=== PATIENT | male | born 1990 | race Two or more races ===

== ENCOUNTER 2020-12-10 04:39 | Emergency (ER) | payer SELFPAY ==
[~2020-12-10] VITALS: Ht 172.7 cm; Wt 59.1 kg
[2020-12-10 04:49] VITALS: BP 138/66
[2020-12-10] MEDS ORDERED: AZITHROMYCIN 250 MG TABLET. PO ONE (05:15)
[2020-12-10] MEDS ORDERED: TRAM-48 PO (05:37)
[2020-12-10] MEDS ORDERED: CLIN300C9 PO (05:37)
--- NOTE | 2020-12-10 05:42 | PHYS DOC ---
Past Medical History Past Surgical History: Other Additional Past Surgical Histo: WRIST General Adult EDM: Chief Complaint: DENTAL PROBLEM HPI: HPI: Patient is a 30 year old MALE presents with the chief complaint of right sided jaw pain and difficulty opening mouth. Patient states symptoms started approximately 6 days ago after having dental cleaning. On exam patient has right sided check swelling. Denies fever or chills. Patient with airway issues. Patient also states significant other has recently tested positive for chlamydia. Review of Systems: Review of Systems: Constitutional: Denies fever or chills. [] Eyes: Denies change in visual acuity. [] HENT: Denies nasal congestion or sore throat. []positive jaw and mouth pain. Respiratory: Denies cough or shortness of breath. [] Cardiovascular: Denies chest pain or edema. [] GI: Denies abdominal pain, nausea, vomiting, bloody stools or diarrhea. [] : Denies dysuria. [] Musculoskeletal: Denies back pain or joint pain. [] Integument: Denies rash. [] Neurologic: Denies headache, focal weakness or sensory changes. [] Endocrine: Denies polyuria or polydipsia. [] Lymphatic: Denies swollen glands. [] Psychiatric: Denies depression or anxiety. [] Heart Score: C/O Chest Pain: N/A Risk Factors: Risk Factors: DM, Current or recent (<one month) smoker, HTN, HLP, family history of CAD, obesity. Risk Scores: Score 0 - 3: 2.5% MACE over next 6 weeks - Discharge Home Score 4 - 6: 20.3% MACE over next 6 weeks - Admit for Clinical Observation Score 7 - 10: 72.7% MACE over next 6 weeks - Early Invasive Strategies Current Medications: Current Medications Medications (Trade) Dose Ordered Sig/Ramos Start Time Stop Time Status Last Admin Dose Admin Azithromycin (Zithromax) 1,000 mg 1X ONCE 12/10/20 05:15 12/10/20 05:16 UNV Physical Exam: PE: Constitutional: Well developed, well nourished, no acute distress, non-toxic appearance. [] HENT: Normocephalic, atraumatic, bilateral external ears normal, oropharynx moist, no oral exudates, nose normal. []right jaw soft tissue swelling over right mandible Eyes: PERRLA, EOMI, conjunctiva normal, no discharge. [] Neck: Normal range of motion, no tenderness, supple, no stridor. [] Cardiovascular:Heart rate regular rhythm, no murmur [] Lungs & Thorax: Bilateral breath sounds clear to auscultation [] Abdomen: Bowel sounds normal, soft, no tenderness, no masses, no pulsatile masses. [] Skin: Warm, dry, no erythema, no rash. [] Back: No tenderness, no CVA tenderness. [] Extremities: No tenderness, no cyanosis, no clubbing, ROM intact, no edema. [] Neurologic: Alert and oriented X 3, normal motor function, normal sensory function, no focal deficits noted. [] Psychologic: Affect normal, judgement normal, mood normal. [] Current Patient Data: Vital Signs: Vital Signs Date Time Temp Pulse Resp B/P (MAP) Pulse Ox O2 Delivery O2 Flow Rate FiO2 12/10/20 04:49 99.6 87 20 138/66 (90) 95 Room Air 99.6 EKG: EKG: [] Radiology/Procedures: Radiology/Procedures: [] Course & Med Decision Making: Course & Med Decision Making Pertinent Labs and Imaging studies reviewed. (See chart for details) [] Gonorrhea chlamydia test results pending. Patient treated with Zithromax. Patient prescribed Ultram and clindamycin. Patient advised to follow-up with his dentist. Laury Disclaimer: Laury Disclaimer: This electronic medical record was generated, in whole or in part, using a voice recognition dictation system. Departure Departure Impression: Primary Impression: Pain, dental Additional Impressions: Jaw pain Exposure to STD Disposition: HOME / SELF CARE / HOMELESS Condition: STABLE Referrals: NO PCP (PCP) Patient Instructions: Dental Abscess, Sexually Transmitted Disease Scripts Clindamycin Hcl (CLINDAMYCIN HCL) 300 Mg Capsule 1 CAP PO TID, #30 CAP Prov: ADALID BALLESTEROS DO 12/10/20 Tramadol Hcl (ULTRAM) 50 Mg Tablet 1 TAB PO PRN Q6HRS PRN for pain MDD 4 Tablet(s) for 7 Days, #28 TAB 0 Refills Prov: ADALID BALLESTEROS DO 12/10/20 ADALID BALLESTEROS DO Dec 10, 2020 05:42
[2020-12-10] MEDS ORDERED: AZITHROMYCIN 250 MG TABLET. ONE (05:56)
== END 2020-12-10 06:08 | disposition home or self-care (01) ==
LOC: ER 04:39
DX: R68.84 Jaw pain (principal); K08.89 Other specified disorders of teeth and supporting structures; Z20.2 Contact with and (suspected) exposure to infections with a predominantly sexual mode of transmission
CPT/HCPCS: 87491; 87591; 99283